=== PATIENT | female | born 1955 | race Caucasian/White ===

== ENCOUNTER 2016-07-12 05:56 | Day surgery (SDC) | payer OTHER ==
[2016-07-12] MEDS ORDERED: LACTATED RINGERS 1,000 ML ONE (06:22)
--- NOTE | 2016-07-12 08:52 | OP ---
DATE OF PROCEDURE: 07/12/16 PREPROCEDURE DIAGNOSIS: 1. Colon cancer screening, average colon cancer risk. POSTPROCEDURE DIAGNOSIS: 1. Colon cancer screening, average colon cancer risk. 2. Normal colonoscopy to the cecum. PROCEDURE: 1. Colonoscopy to the cecum. SURGEON: Fabrice Nance MD. ANESTHESIA: Monitored anesthesia care. INDICATION: Colon cancer screening, ten year interval. FINDINGS: With the patient under adequate sedation, digital exam showed normal anal canal with normal anal sphincter tone. No rectal masses. The rectum was unremarkable. Colon preparation was excellent. The colon could be examined to good advantage. Technically difficult colonoscopy because of loops, bands, and adhesions in the pelvic area. There was no clinically significant diverticulosis. The sigmoid and descending colon were otherwise normal. The splenic flexure, transverse colon, ascending colon, and cecum were unremarkable. Both flexures were examined in detail. The cecum was identified. The appendix opening and ileocecal valve were well seen. Withdrawal of the scope and reexamination did not show any additional new findings. The patient tolerated the procedure well. Total scope withdrawal time was 6-1/2 minutes. FINAL IMPRESSION: 1. Unremarkable colonoscopic evaluation to the cecum. RECOMMENDATION: Screening colonoscopy in ten years. #[id number] cc: MD Fabrice Saunders MD [facility]
[2016-07-12 10:53] VITALS: O2SAT 99
[2016-07-12 10:55] VITALS: BP 114/64; TEMP 97.9
[2016-07-12] MEDS ORDERED: PROPOFOL 200 MG/20 ML VIAL IV ONE (12:00)
[2016-07-12] MEDS ORDERED: LIDOCAINE 1% 10 ML VIAL INJ ONE (12:00)
== END 2016-07-12 10:20 | disposition home or self-care (01) ==
LOC: AMB 05:56
PROVIDERS: ATTEND Internal Medicine Gastroenterology
DX: Z12.11 Encounter for screening for malignant neoplasm of colon (principal); Z79.899 Other long term (current) drug therapy
CPT/HCPCS: 00810; 45378; J3490; J7120

== ENCOUNTER → 2017-04-03 | Outpatient (CLI) | payer OTHER ==
--- NOTE | 2017-04-07 22:22 | MRI ---
MRI left shoulder without contrast INDICATION: Shoulder pain radiating down the arm unspecified date of onset TECHNIQUE: Noncontrast MR imaging left shoulder FINDINGS: Mild to moderate hypertrophic AC joint osteoarthrosis. Moderate subacromial and subdeltoid bursitis. No advanced muscle atrophy. There is a high-grade interstitial and bursal surface partial tear of the anterior insertional supraspinatus best visualized on the sagittal images. No retraction. No fracture or destructive process. There is mild tendinopathy and thinning of the subscapularis tendon. No bicep rupture or dislocation. No displaced labral tear. IMPRESSION: High-grade nearly full-thickness partial tear anterior insertional supraspinatus tendon Subacromial and subdeltoid bursitis Moderate hypertrophic AC joint osteoarthrosis No advanced muscle atrophy Electronically signed by: Bebo Marcum MD 04/07/2017 10:21 PM [facility]
== END | disposition home or self-care (01) ==
LOC: MRI 13:15
PROVIDERS: ATTEND Family Medicine
DX: S46.912D Strain of unspecified muscle, fascia and tendon at shoulder and upper arm level, left arm, subsequent encounter (principal); X58.XXXA Exposure to other specified factors, initial encounter

== ENCOUNTER → 2017-04-04 | Outpatient (CLI) | payer OTHER ==
--- NOTE | 2017-04-09 08:50 | MAM ---
EXAM DESCRIPTION: Screening Mammogram,Bilateral: Digital Mammography CLINICAL HISTORY: 61 years Female SCREENING . No complaints. No family history of breast cancer. Postmenopausal. Taking HRT 5 or more years ago. COMPARISON: 2-D digital screening bilateral examination 04/03/2016 and 04/01/2015. Report from prior examination also reviewed. TECHNIQUE: Bilateral CC and MLO projection full-field images, 2-D digital screening mammographic technique. CAD was utilized. FINDINGS: The breast parenchymal density pattern is: Scattered areas of fibroglandular density. No skin thickening or nipple retraction . Right axillary lymph nodes. Retroareolar asymmetry with more density on the left than the right breast is stable. Bilateral solitary microcalcifications. No focal, stellate mass or density, focal asymmetry , and no suspicious microcalcifications bilaterally. Stable mammograms compared to the prior study, taking into account differences in mammographic technique. IMPRESSION: BI-RADS CATEGORY: 2 - BENIGN FINDINGS. FOLLOW UP: Routine digital bilateral screening, one year interval from March 2017. Written communication explaining the IMPRESSION and follow-up, will be mailed to the patient and referring health care provider. According to the [employer], yearly mammograms are recommended starting at age 40 and continuing as long as a woman is in good health. Any breast change noted on a breast self-exam should be reported promptly to the patient's healthcare provider. Breast MRI is recommended for women with an approximately 20-25% or greater lifetime risk of breast cancer, including women with a strong family history of breast or ovarian cancer and women who have been treated for Hodgkin's disease. A negative mammographic report should not delay tissue diagnosis in patients with significant clinical history or physical findings. Extremely dense breast tissue limits the sensitivity of digital mammography. Electronically signed by: Able Penaloza MD 04/09/2017 8:49 AM [facility]
== END | disposition home or self-care (01) ==
LOC: MAMMO 10:30
PROVIDERS: ATTEND Physician Assistant Medical
DX: Z12.31 Encounter for screening mammogram for malignant neoplasm of breast (principal)

== ENCOUNTER → 2018-04-08 | Outpatient (CLI) | payer OTHER ==
--- NOTE | 2018-04-09 16:15 | MAM ---
EXAM DESCRIPTION: 3D Screening BILATERAL : Digital Mammography. CLINICAL HISTORY: 62 years Female SCREENING . No complaints. No personal or family history of breast cancer. Childbirth. Postmenopausal. Currently on HRT.. Lifetime risk of developing breast cancer (Tyrer-Cuzick model)(%): 9.1. COMPARISON: 2-D digital screening bilateral mammography 04/04/2017.. TECHNIQUE: Bilateral CC and MLO projection full-field images, digital tomosynthesis mammographic technique. Bilateral digital 2-D full-field MLO images. CAD not available for tomosynthesis or 2-D images. FINDINGS: The breast parenchymal density pattern is: Scattered areas of fibroglandular density. No skin thickening or nipple retraction. Bilateral solitary microcalcifications. Slightly more dense in the retroareolar left breast compared to the right but this asymmetry is stable. No new focal, stellate mass or density, focal asymmetry , and no suspicious microcalcifications bilaterally. Stable mammograms compared to prior study. Taking into account, differences in mammographic technique. IMPRESSION: Benign exam. BIRAD CATEGORY: 2 BENIGN FINDINGS. RECOMMENDATIONS: FOLLOW UP: Routine digital bilateral mammographic screening, one year interval from March 2017. Written communication explaining the IMPRESSION and follow-up, will be mailed to the patient and referring health care provider. According to the [employer], yearly mammograms are recommended starting at age 40 and continuing as long as a woman is in good health. Any breast change noted on a breast self-exam should be reported promptly to the patient's healthcare provider. Breast MRI is recommended for women with an approximately 20-25% or greater lifetime risk of breast cancer, including women with a strong family history of breast or ovarian cancer and women who have been treated for Hodgkin's disease. A negative mammographic report should not delay tissue diagnosis in patients with significant clinical history or physical findings. Extremely dense breast tissue limits the sensitivity of digital mammography. Electronically signed by: Abel Penaloza MD 04/09/2018 4:14 PM [employer] [employer]
== END ==
LOC: MAMMO 09:30
PROVIDERS: ATTEND Physician Assistant Medical
DX: Z12.31 Encounter for screening mammogram for malignant neoplasm of breast (principal)

== ENCOUNTER → 2019-04-14 | Outpatient (CLI) | payer OTHER ==
--- NOTE | 2019-04-15 16:44 | MAM ---
EXAM DESCRIPTION: 3D Screening BILATERAL : Digital Mammography. CLINICAL HISTORY: 63 years Female ANNUAL SCREENING . No complaints. No personal or family history of breast cancer. Menarche age 12. Childbirth age 29. Postmenopausal unknown. Currently on HRT. Lifetime risk of developing breast cancer (Tyrer-Cuzick model)(%): 8.9. COMPARISON: Bilateral screening digital breast tomosynthesis 08 April 2018 and 2-D digital screening bilateral mammography 04 April 2017. TECHNIQUE: Bilateral CC and MLO projection full-field images, digital tomosynthesis mammographic technique. Bilateral digital 2-D full-field MLO images. CAD not available for tomosynthesis or 2-D images. FINDINGS: The breast parenchymal density pattern is: Scattered areas of fibroglandular density. No skin thickening or nipple retraction. No new focal, stellate mass or density, focal asymmetry , and no suspicious microcalcifications bilaterally. Stable mammograms compared to prior study. IMPRESSION: BI-RADS CATEGORY: 1 - NEGATIVE FOLLOW UP: Routine digital bilateral screening, one year interval from April 2019. Written communication explaining the findings and follow-up, will be mailed to the patient and referring health care provider. The FINDINGS and the FOLLOW-UP plan were reviewed in person with the patient after the examination. According to the [employer], yearly mammograms are recommended starting at age 40 and continuing as long as a woman is in good health. Any breast change noted on a breast self-exam should be reported promptly to the patient's healthcare provider. Breast MRI is recommended for women with an approximately 20-25% or greater lifetime risk of breast cancer, including women with a strong family history of breast or ovarian cancer and women who have been treated for Hodgkin's disease. A negative mammographic report should not delay tissue diagnosis in patients with significant clinical history or physical findings. Extremely dense breast tissue limits the sensitivity of digital mammography. Electronically signed by: Abel Penaloza MD 04/15/2019 4:42 PM [employer]RE[employer] CLERK
== END ==
LOC: MAMMO 11:30
PROVIDERS: ATTEND Physician Assistant Medical
DX: Z12.31 Encounter for screening mammogram for malignant neoplasm of breast (principal)

== ENCOUNTER → 2020-04-19 | Outpatient (CLI) | payer MEDICARE, OTHER ==
--- NOTE | 2020-04-20 19:47 | MAM ---
EXAM DESCRIPTION: 3D Screening BILATERAL : Digital Mammography. CLINICAL HISTORY: 64 years Female SCREENING . No complaints. No family history of breast cancer. Menarche age 11. Menopause age 34. Childbirth age 29. Currently on HRT.. Lifetime risk of developing breast cancer (Tyrer-Cuzick model)(%): 8.6. COMPARISON: Bilateral screening digital breast tomosynthesis April 2019 and March 2018. TECHNIQUE: Bilateral CC and MLO projection full-field images, digital tomosynthesis mammographic technique. Bilateral digital 2-D full-field MLO images. CAD available for 2-D images. FINDINGS: The breast parenchymal density pattern is: Scattered areas of fibroglandular density. Solitary microcalcifications. Axillary nodes. No skin thickening or nipple retraction No new focal, stellate mass or density, focal asymmetry , and no suspicious microcalcifications bilaterally. Stable mammograms compared to prior study. IMPRESSION: Benign exam. BIRAD CATEGORY: 2 BENIGN FINDINGS. RECOMMENDATIONS: FOLLOW UP: Routine digital bilateral mammographic screening, one year interval from April 2020. Written communication explaining the IMPRESSION and follow-up, will be mailed to the patient and referring health care provider. According to the [employer], yearly mammograms are recommended starting at age 40 and continuing as long as a woman is in good health. Any breast change noted on a breast self-exam should be reported promptly to the patient's healthcare provider. Breast MRI is recommended for women with an approximately 20-25% or greater lifetime risk of breast cancer, including women with a strong family history of breast or ovarian cancer and women who have been treated for Hodgkin's disease. A negative mammographic report should not delay tissue diagnosis in patients with significant clinical history or physical findings. Extremely dense breast tissue limits the sensitivity of digital mammography. Electronically signed by: Abel Penaloza MD 04/20/2020 7:46 PM [employer]
== END ==
LOC: MAMMO 15:11
PROVIDERS: ATTEND Physician Assistant Medical
DX: Z12.31 Encounter for screening mammogram for malignant neoplasm of breast (principal)

== ENCOUNTER → 2020-05-17 | Outpatient (CLI) | payer MEDICARE, OTHER ==
--- NOTE | 2020-05-17 16:14 | US ---
EXAM DESCRIPTION: Abdomen,Complete: Ultrasound. CLINICAL HISTORY: 64 years Female ABD PAIN COMPARISON: None Available. TECHNIQUE: Transabdominal scanning: grayscale and Doppler modes. FINDINGS: Gallbladder: Normal size. Echogenic nonmovable logic on the gallbladder wall measuring 4.8 mm. No stones. No fluid around the gallbladder. No wall thickening. 1.3 mm. Non-tender with transducer pressure. Common bile duct: caliber 4.3 mm within normal limits. Liver: normal echogenicity; contour liver capsule smooth where seen. No fluid around the liver. Intrahepatic biliary ducts normal caliber. Doppler hepatopedal flow and normal caliber portal vein 7.7 mm.. Long axis right lobe 14.1 cm. Pancreas: normal size and echogenicity. Duct not seen. Complete abdominal aorta: Normal caliber from the proximal segment to the distal bifurcation.. IVC: visualized and normal caliber. Right kidney: long axis measures 9.7 cm; volume 112.1 mL.. Cortical echogenicity tab. Cortical thickness 11.5 mm.. No echogenic stones; no hydronephrosis. Left kidney: long axis measures 10 cm; volume 153.6 mL. Cortical echogenicity is minimally increased.. Normal cortical thickness. 1.3 cm cyst upper pole. No echogenic stones; no hydronephrosis. Spleen: Normal. No focal lesions.. 8.8 cm long axis. Other: None. IMPRESSION: 1. No gallstones, but probable polyp between 4 and 5 mm. No wall thickening or fluid. Nontender. Common bile duct unremarkable. The spleen is negative. 2. Liver and pancreas are unremarkable. No ascites. 3. 1.3 cm cyst upper pole left kidney. Increased echogenicity of the left renal cortex. Minimal thinning of the right renal cortex. Otherwise negative findings, bilateral kidneys. Electronically signed by: Abel Penaloza MD 05/17/2020 4:13 PM [employer]
== END ==
LOC: US 08:51
PROVIDERS: ATTEND Nurse Practitioner Women's Health
DX: R10.84 Generalized abdominal pain (principal); N28.1 Cyst of kidney, acquired; N28.9 Disorder of kidney and ureter, unspecified

== ENCOUNTER → 2020-06-03 | Outpatient (CLI) | payer MEDICARE, OTHER | LOC: GMAE 17:41 | PROVIDERS: ATTEND Family Medicine | DX: N30.00 Acute cystitis without hematuria (principal) ==